=== PATIENT | male | born 1950 | race Caucasian/White ===

== ENCOUNTER 2022-02-17 14:39 | Emergency (ER) | payer OTHER ==
--- OUTSIDE RECORDS SUMMARY | 2022-02-17 14:58 | XMS REPORT | Continuity of Care Document ---
:[address] [facility] t Address [facility] [address] [place] [address] Care Team Providers Name Role Phone Lab, Adc Fam Pob I Attending Clinician Unavailable Keira Quintana Attending Clinician Doctor Unassigned, [place] Attending Clinician Unavailable Ngoc Gong PA-C Attending Clinician Unknown, Attending Attending Clinician Unavailable Payers Payer Name Policy Type Policy Number Effective Date Expiration Date S ource Problems This patient has no known problems. Allergies, Adverse Reactions, Alerts Allergy Allergy Status Severity Reaction(s) Onset Inactive Treating Comm ents Source Name Type Date Date Clinician NO KNOWN Drug Active [facility] ALLERGIE Class ity of [facility] Social History Social Habit Start Date Stop Date Quantity Comments Source Sex Assigned At [facility] Medical Branch Tobacco use and 2018-12-27 2018-12-27 Never used [facility] exposure 00:00:00 00:00:00 Medical Branch Smoking Status Start Date Stop Date Source Former smoker 2018-12-27 00:00:00 2018-12-27 00:00:00 [facility] Branch Medications Ordered Filled Start Stop Current Ordering Indication Dosage Frequency Signature Comments Components Source Medication Medication Date Date Medication? Clinician (SIG) Name Name ananth 2019- No 40mg Unive rs ne 12-28 ity of acetonide 04:15: 03:04 [place] (KENALOG) 00 :00 Medical injection Branch 40 mg triamcinolo 2019- No 40mg 40 mg, Uni vers ne 12-28 Intramuscu ity of acetonide 04:15: 03:04 [place], ONCE, [place] ([place] 00 :00 1 dose, Medical injection 12/27/18 Bran ch 40 mg at 2315, Routine simvastatin Yes TAKE 1 Univ ers 40 mg 7-07 TABLET BY ity of tablet 00:00: MOUTH EVERY DAY Medical IN THE Branch EVENING olmesartan- Yes TAKE 1 Univ ers hydrochloro 7-07 TABLET BY ity of thiazide 00:00: ORAL ROUTE [place] as 20-12.5 mg 00 EVERY DAY Medi johnny per tablet Branch simvastatin Yes TAKE 1 Univ ers 40 mg 7-07 TABLET BY ity of tablet 00:00: MOUTH EVERY DAY Medical IN THE Branch EVENING olmesartan- Yes TAKE 1 Univ ers hydrochloro 7-07 TABLET BY ity of thiazide 00:00: ORAL ROUTE [place] as 20-12.5 mg 00 EVERY DAY Medi johnny per tablet Branch simvastatin Yes TAKE 1 Univ ers 40 mg 7-07 TABLET BY ity of tablet 00:00: MOUTH EVERY DAY Medical IN THE Branch EVENING olmesartan- Yes TAKE 1 Univ ers hydrochloro 7-07 TABLET BY ity of thiazide 00:00: ORAL ROUTE [place] as 20-12.5 mg 00 EVERY DAY Medi johnny per tablet Branch esomeprazol Yes TAKE 1 Univ ers e 40 mg 7-04 CAPSULE ity of capsule 00:00: (40MG) BY [place] [id number] [address] Medical EVERY DAY Branch esomeprazol Yes TAKE 1 Univ ers e 40 mg 7-04 CAPSULE ity of capsule 00:00: (40MG) BY [place] [id number] [address] Medical EVERY DAY Branch esomeprazol Yes TAKE 1 Univ ers e 40 mg 7-04 CAPSULE ity of capsule 00:00: (40MG) BY [place] [id number] [address] Medical EVERY DAY Branch Vital Signs Vital Name Observation Time Observation Value Comments Source Systolic blood 2018-12-28 02:56:00 143 mm[Hg] Univer sity of pressure [place] [facility] Diastolic blood 2018-12-28 02:56:00 81 mm[Hg] Unive rsity of pressure [place] [facility] Heart rate 2018-12-28 02:54:00 62 /min [facility] [place] [facility] Body temperature 2018-12-28 02:54:00 36.56 Gloria Univ ersity of [place] [facility] Respiratory rate 2018-12-28 02:54:00 16 /min Univ ersity of [place] [facility] Body height 2018-12-28 02:54:00 182.9 cm [facility] [place] [facility] Body weight 2018-12-28 02:54:00 93.169 kg [facility] [place] [facility] BMI 2018-12-28 02:54:00 27.86 kg/m2 [facility] [place] [facility] Oxygen saturation in 2018-12-28 02:54:00 98 /min University of [facility] blood by [facility] Pulse oximetry Branch Systolic blood 2018-12-28 02:56:00 143 mm[Hg] Univer sity of pressure [place] [facility] Diastolic blood 2018-12-28 02:56:00 81 mm[Hg] Unive rsity of pressure [place] [facility] Heart rate 2018-12-28 02:54:00 62 /min [facility] [place] [facility] Body temperature 2018-12-28 02:54:00 36.56 Gloria Univ ersity of [place] [facility] Respiratory rate 2018-12-28 02:54:00 16 /min Univ ersity of [place] [facility] Body height 2018-12-28 02:54:00 182.9 cm [facility] [place] [facility] Body weight 2018-12-28 02:54:00 93.169 kg [facility] [place] [facility] BMI 2018-12-28 02:54:00 27.86 kg/m2 [facility] [place] [facility] Oxygen saturation in 2018-12-28 02:54:00 98 /min University of Arterial blood by [facility] Pulse oximetry Branch Procedures This patient has no known procedures. Encounters Start End Encounter Admission Attending Care Care Encounter Source Date/Time Date/Time Type Type Clinicians Facility Department ID 2020-04-09 2020-04-09 Laboratory Lab, Adc Fam Pob I [place] [id number] [facility] 08:33:23 08:53:[address] [facility] [id number] ity of [place] [id number] Riley as Professio [id number] [facility] [address] 2020-04-09 2020-04-09 Outpatient R [facility] [id number] Univers 08:20:00 08:20:00 ity of [facility] 2020-04-09 2020-04-09 Letter Doctor MK [id number] Univers 00:00:00 00:00:00 (Out) Unassigned, RODGER [id number] ity of [place] [facility] [id number] Riley as [id number] [address] 2018-12-27 2018-12-27 [facility] [id number] 21:50:50 22:05:50 Care [facility] [id number] Surgical [id number] Specialti [id number] [address] 2018-12-27 2018-12-27 [facility] [id number] [facility] 21:50:50 22:05:50 Care [facility], [facility], [facility] [id number] ity of Surgical [id number] [place] as Specialti [id number] Mi [facility] [address] [facility] Results This patient has no known results.
--- NOTE | 2022-02-17 15:44 | RAD REPORT ---
EXAM DESCRIPTION: CT - Head Brain Wo Cont - 02/17/2022 3:31 pm CLINICAL HISTORY: Near syncope COMPARISON: No comparisons TECHNIQUE: All CT scans are performed using dose optimization technique as appropriate and may inclu de automated exposure control or mA/KV adjustment according to patient size. FINDINGS: No intracranial hemorrhage, hydrocephalus or extra-axial fluid collection.No areas of brai n edema or evidence of midline shift. The paranasal sinuses and mastoids are clear. The calvarium is intact. IMPRESSION: No acute intracranial abnormality.
[2022-02-17 16:29] LABS: Absolute Lymphocytes (CBC) 0.7 K/uL (0.7-4.9); Hematocrit 43.1 % (39.6-49.0); Lymphocytes % 12.4 % (15.3-44.8); MCV 85.2 fL (80-100); MPV 7.9 fL (7.6-11.3); RBC Red Blood Cell Count 5.06 M/uL (4.33-5.43)
[2022-02-17 16:32] LABS: Protime INR 1.17
[2022-02-17 16:49] LABS: Albumin 3.3 g/dL (3.4-5.0); Bilirubin Direct 0.2 mg/dL (0-0.2); Bilirubin Total 0.6 mg/dL (0.2-1.0); Magnesium 2.1 mg/dL (1.8-2.4); Potassium 3.6 mmol/L (3.5-5.1); Protein, Total 7.5 g/dL (6.4-8.2); Troponin High Sensitivity 11.4 pg/mL (<58.9)
[2022-02-17 17:01] LABS: Urine Blood 1+ (Negative); Urine Glucose Negative (Negative); Urine Protein 1+ (Negative); Urine Specific Gravity 1.025 (1.005-1.030)
--- NOTE | 2022-02-17 18:00 | ER ---
Nurse's Notes [facility] Name: Henrique Vann Age: 71 yrs Sex: Male : 1950 Arrival Date: 02/17/2022 Time: 14:41 Bed 13 Private MD: Diagnosis: Syncope Near Presentation: 02/17 15:00 Chief complaint: EMS states: patient was working outside felt light headed like was db going to pass out. complained of numbness in fingers, tachypnic upon EMS arrival. 1 week ago took a viagra and had headache for 1 week. Coronavirus screen: Vaccine status: Patient reports being unvaccinated. Client denies travel out of the [place] in the last 14 days. At this time, the client does not indicate any symptoms associated with coronavirus-19. Ebola Screen: Patient negative for fever greater than or equal to 101.5 degrees Fahrenheit, and additional compatible Ebola Virus Disease symptoms Patient denies exposure to infectious person. Patient denies travel to an Ebola-affected area in the 21 days before illness onset. No symptoms or risks identified at this time. Initial Sepsis Screen: Does the patient meet any 2 criteria? No. Patient's initial sepsis screen is negative. Does the patient have a suspected source of infection? No. Patient's initial sepsis screen is negative. Risk Assessment: Do you want to hurt yourself or someone else? Patient reports no desire to harm self or others. Onset of symptoms was February 17, 2022 at 12:00. 15:00 Acuity: MARY ANN 2 db 15:13 Chief complaint: Patient states: near syncope. db 15:14 Method Of Arrival: EMS: [facility] db Triage Assessment: 15:17 General: Appears in no apparent distress. comfortable, Behavior is calm, cooperative, db appropriate for age, quiet. Pain: Denies pain. Cardiovascular:. Respiratory: No deficits noted. Airway is patent Respiratory effort is even, unlabored. Historical: - Allergies: 15:17 No Known Allergies; db - Home Meds: 15:17 simvastatin 40 mg Oral tab [Active]; esomeprazole magnesium 40 mg oral TbEC [Active]; db olmesartan-hydrochlorothiazide 20-12.5 mg oral tab [Active]; - PMHx: 15:17 Hypertensive disorder; db - Immunization history:: Adult Immunizations unknown, Client reports having NOT received the Covid vaccine. - Social history:: Smoking status: Patient denies any tobacco usage or history of. Screenin:00 Abuse screen: Denies threats or abuse. Denies injuries from another. Nutritional db screening: No deficits noted. Tuberculosis screening: No symptoms or risk factors identified. Fall Risk None identified. No fall in past 12 months (0 pts). No secondary diagnosis (0 pts). IV access (20 points). Ambulatory Aid- None/Bed Rest/Nurse Assist (0 pts). Gait- Normal/Bed Rest/Wheelchair (0 pts) Mental Status- Oriented to own ability (0 pts). Total Moreau Fall Scale indicates No Risk (0-24 pts). Assessment: 16:17 Reassessment: Patient appears in no apparent distress at this time. No changes from db previously documented assessment. Patient and/or family updated on plan of care and expected duration. Pain level reassessed. Patient is alert, oriented x 3, equal unlabored respirations, skin warm/dry/pink. Neuro: No deficits noted. Cardiovascular:. Cardiovascular: Denies chest pain. 18:00 Reassessment: Patient appears in no apparent distress at this time. Patient and/or db family updated on plan of care and expected duration. Pain level reassessed. Patient is alert, oriented x 3, equal unlabored respirations, skin warm/dry/pink. Patient states feeling better. Patient states symptoms have improved. General: Appears in no apparent distress. comfortable, Behavior is calm, cooperative, appropriate for age, quiet. Vital Signs: 15:00 BP 154 / 83; Pulse 71; Resp 14; Temp 98.7(O); Pulse Ox 100% ; Weight 90.72 kg; Height 6 db ft. (182.88 cm); Pain 0/10; 16:00 BP 134 / 80; Pulse 77; Resp 18; Pulse Ox 96% ; Pain 0/10; db 17:00 BP 153 / 83; Pulse 77; Resp 18; Pulse Ox 97% ; db 17:45 BP 167 / 85; Pulse 79; Resp 18; Pulse Ox 96% ; Pain 7/10; db 18:30 BP 155 / 78; Pulse 86; Resp 16; Temp 98.5; Pulse Ox 100% on R/A; db 15:00 Body Mass Index 27.12 (90.72 kg, 182.88 cm) db ED Course: 14:41 Patient arrived in ED. eb 14:46 Sonny Cardenas PA is PHCP. cp 14:46 Jonas Kam DO is Attending Physician. cp 15:00 Maintain EMS IV. Dressing intact. Good blood return noted. Site clean \T\ dry. Gauge \T\ db site: 20 G left AC. 15:13 Kathy Kennedy, RN is Primary Nurse. db 15:17 Triage completed. db 15:32 CT Head Brain wo Cont In Process Unspecified. EDMS 16:00 Patient has correct armband on for positive identification. Bed in low position. Call db light in reach. Side rails up X 1. 17:00 Urine collected: clean catch specimen, linette colored. tm3 17:58 Diogo Muniz DO is Referral Physician. ms3 18:00 No provider procedures requiring assistance completed. IV discontinued. db 18:00 Arm band placed on right wrist. db Administered Medications: 18:20 Drug: Tylenol 1000 mg Route: PO; db 18:28 Follow up: Response: No adverse reaction db Medication: 16:00 VIS not applicable for this client. db Outcome: 17:59 Discharge ordered by . ms3 18:00 Discharged to home via wheelchair, with family. db 18:00 Condition: stable 18:00 Discharge instructions given to patient, Instructed on discharge instructions, follow up and referral plans. 18:31 Patient left the ED. db Signatures: Dispatcher [employer] EDCA Ayaz Gillette tm3 Sonny Cardenas PA PA cp Botello, Elizabeth eb Jonas Kam DO DO ms3 Kathy Kennedy, RN RN db
--- NOTE | 2022-02-17 18:00 | EDPHYS ---
Physician Documentation [facility] Name: Henrique Vann Age: 71 yrs Sex: Male : 1950 Arrival Date: 02/17/2022 Time: 14:41 Bed 13 Private MD: ED Physician Jonas Kam HPI: 02/17 15:15 This 71 yrs old Male presents to ER via Unassigned with complaints of Near Syncope. ms3 15:15 The patient has experienced near-syncope, felt dizzy. Onset: The symptoms/episode ms3 began/occurred just prior to arrival. Duration: This was a single episode. Associated injury: The patient did not suffer any apparent associated injury. Associated signs and symptoms: Pertinent positives: dizziness, Pertinent negatives: abdominal pain, chest pain. Current symptoms: Currently, the patient is not experiencing any symptoms. Historical: - Allergies: 15:17 No Known Allergies; db - Home Meds: 15:17 simvastatin 40 mg Oral tab [Active]; esomeprazole magnesium 40 mg oral TbEC [Active]; db olmesartan-hydrochlorothiazide 20-12.5 mg oral tab [Active]; - PMHx: 15:17 Hypertensive disorder; db - Immunization history:: Adult Immunizations unknown, Client reports having NOT received the Covid vaccine. - Social history:: Smoking status: Patient denies any tobacco usage or history of. ROS: 15:15 Constitutional: Negative for fever, and chills. Neck: Negative for injury, pain, and ms3 swelling, Cardiovascular: Negative for chest pain, and palpitations. Respiratory: Negative for shortness of breath, cough, wheezing, and pleuritic chest pain, MS/Extremity: Negative for injury and deformity, Skin: Negative for injury, rash, and discoloration. 15:15 Neuro: Positive for near syncope. 15:15 All other systems are negative. Exam: 15:15 Constitutional: This is a well developed, well nourished patient who is awake, alert, ms3 and in no acute distress. Head/Face: Normocephalic, atraumatic. Neck: Trachea midline, no cervical lymphadenopathy. Supple, full range of motion without nuchal rigidity, or vertebral point tenderness. No Meningismus. Chest/axilla: Normal chest wall appearance and motion. Nontender with no deformity. Cardiovascular: Regular rate and rhythm with a normal S1 and S2. No gallops, murmurs, or rubs. Normal PMI, no JVD. No pulse deficits. Respiratory: Lungs have equal breath sounds bilaterally, clear to auscultation and percussion. No rales, rhonchi or wheezes noted. No increased work of breathing, no retractions or nasal flaring. Abdomen/GI: Soft, non-tender, with normal bowel sounds. No distension or tympany. No guarding or rebound. No evidence of tenderness throughout. Back: No spinal tenderness. No costovertebral tenderness. Full range of motion. Skin: Warm, dry with normal turgor. Normal color with no rashes, no lesions, and no evidence of cellulitis. Neuro: Awake and alert, GCS 15, oriented to person, place, time, and situation. Cranial nerves II-XII grossly intact. Motor strength 5/5 in all extremities. Sensory grossly intact. Cerebellar exam normal. Normal gait. 16:07 ECG was reviewed by the Attending Physician. ms3 Vital Signs: 15:00 BP 154 / 83; Pulse 71; Resp 14; Temp 98.7(O); Pulse Ox 100% ; Weight 90.72 kg; Height 6 db ft. (182.88 cm); Pain 0/10; 16:00 BP 134 / 80; Pulse 77; Resp 18; Pulse Ox 96% ; Pain 0/10; db 17:00 BP 153 / 83; Pulse 77; Resp 18; Pulse Ox 97% ; db 17:45 BP 167 / 85; Pulse 79; Resp 18; Pulse Ox 96% ; Pain 7/10; db 18:30 BP 155 / 78; Pulse 86; Resp 16; Temp 98.5; Pulse Ox 100% on R/A; db 15:00 Body Mass Index 27.12 (90.72 kg, 182.88 cm) db MDM: 14:50 Patient medically screened. ms3 15:15 Differential Diagnosis: cardiac arrhythmia, idiopathic syncope, anxiety. ms3 18:14 Data reviewed: vital signs, nurses notes, lab test result(s), EKG, radiologic studies, ms3 and as a result, I will discharge patient. Data interpreted: property assessment monitor: rate is 80 beats/min, rhythm is normal sinus rhythm, regular, with no ectopy, Interpretation: normal rate, normal rhythm. Counseling: I had a detailed discussion with the patient and/or guardian regarding: the historical points, exam findings, and any diagnostic results supporting the discharge/admit diagnosis, lab results, radiology results, the need for outpatient follow up, to return to the emergency department if symptoms worsen or persist or if there are any questions or concerns that arise at home. ED course: Discussed labs, EKG, CT head with patient and his son. Discussed observation with patient patient declines. All questions were answered. Return precautions discussed include worsening symptoms, headache, weakness, numbness, chest pain, shortness of breath, or any other concerns. Patient understands and agrees with plan. On reevaluation patient is alert and oriented x4, in no apparent distress, nontoxic, asymptomatic. 02/17 14:50 Order name: Basic Metabolic Panel; Complete Time: 17:49 ms3 02/17 14:50 Order name: CBC with Diff; Complete Time: 17:49 ms3 02/17 14:50 Order name: CPK; Complete Time: 17:49 ms3 02/17 14:50 Order name: Hepatic Function; Complete Time: 17:49 ms3 02/17 14:50 Order name: Magnesium; Complete Time: 17:49 ms3 02/17 14:50 Order name: Protime (+inr); Complete Time: 17:49 ms3 02/17 14:50 Order name: Ptt, Activated; Complete Time: 17:49 ms3 02/17 14:50 Order name: Troponin High Sensitivity; Complete Time: 17:49 ms3 02/17 14:50 Order name: CT Head Brain wo Cont; Complete Time: 16:05 ms3 02/17 14:50 Order name: EKG; Complete Time: 14:52 ms3 02/17 14:50 Order name: Cardiac monitoring; Complete Time: 16:16 ms3 02/17 14:50 Order name: EKG - Nurse/Tech; Complete Time: 16:16 ms3 02/17 17:01 Order name: Urine Dipstick-Ancillary; Complete Time: 17:49 EDMS 02/17 14:50 Order name: IV Saline Lock; Complete Time: 16:16 ms3 02/17 14:50 Order name: Labs collected and sent; Complete Time: 16:17 ms3 02/17 14:50 Order name: NPO; Complete Time: 16:17 ms3 02/17 14:50 Order name: O2 Per Protocol; Complete Time: 16:17 ms3 02/17 14:50 Order name: O2 Sat Monitoring; Complete Time: 16:17 ms3 02/17 14:50 Order name: Urine Dipstick-Ancillary (obtain specimen); Complete Time: 17:21 ms3 EC:07 Rate is 74 beats/min. Rhythm is regular. QRS [place] is Normal. QT interval is normal. ms3 Clinical impression: Normal ECG and with preventricular contractions. Interpreted by me. Reviewed by me. Administered Medications: 18:20 Drug: Tylenol 1000 mg Route: PO; db 18:28 Follow up: Response: No adverse reaction db Disposition Summary: 02/17/22 17:59 Discharge Ordered Location: Home ms3 Condition: Stable ms3 Diagnosis - Syncope Near ms3 Followup: ms3 - With: Diogo Muniz DO - When: 2 - 3 days - Reason: Recheck today's complaints Discharge Instructions: - Discharge Summary Sheet ms3 - Near-Syncope ms3 Forms: - Medication Reconciliation Form ms3 - Thank You Letter ms3 - Antibiotic Education ms3 - Prescription Opioid Use ms3 Signatures: Dispatcher [employer] EDMS Jonas Kam DO DO ms3 Kathy Kennedy, RN RN db
[2022-02-17] MEDS ORDERED: ACETAMINOPHEN 500 MG TAB ONE (18:20)
[2022-02-17 18:40] VITALS: BP 155/78; TEMP 98.5; O2SAT 100
--- NOTE | 2022-02-20 16:06 | EKG ---
Test Date: 2022-02-17 Test Time: 16:07:42 Steel Spar Operator: AMARI MEASUREMENT RESULTS: Intervals: Rate: 74 NE: 174 QRSD: 112 QT: 370 QTc: 410 [place]: P: 68 NE: 174 QRS: 46 T: 192 INTERPRETIVE STATEMENTS: Sinus rhythm with occasional premature ventricular complexes Septal infarct, age undetermined Abnormal ECG Compared to ECG 04/12/2007 19:54:48 Ventricular premature complex(es) now present Myocardial infarct finding now present T-wave abnormality no longer present Electronically Signed On 02-20-22 16:00:15 CDT by Oliver Vickers
== END 2022-02-17 18:31 | disposition home or self-care (01) ==
LOC: ER 14:39
DX: R55 Syncope and collapse (principal); R42 Dizziness and giddiness; I10 Essential (primary) hypertension
CPT/HCPCS: 36415; 70450; 80048; 80076; 81003; 82550; 83735; 84484; 85025; 85610; 85730; 93005; 99284